=== PATIENT | female | born 1980 | race Two or more races ===

== ENCOUNTER 2024-06-23 09:34 | Outpatient (AMB) | payer OTHER, SELFPAY ==
--- NOTE | 2024-06-23 09:54 | A.OFFPC_ITS ---
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 Previously being seen by [facility] has been over a year. Presenting with anxiety management and IBS concerns. There is a history of anxiety with past panic attacks, previously managed with Zoloft which posed sexual dysfunction, prompting discontinuation. Current use of Sukumar tea for anxiety relief is noted; the patient seeks further assistance through medication or counseling. Reports IBS-like symptoms with alternating constipation and diarrhea; bloating is worsened by certain foods, like broccoli. She also mentions 2 cysts on the right wrist and a small mass on the left upper shoulder which has been present for several years. [facility] Medical History Ovarian cyst Asthma Surgical History History of left oophorectomy History of Family History Father Substance use disorder Mother Hypertension Dementia Hyperlipidemia Mental health disorder Social History Housing: House Alcohol intake: current Alcohol intake frequency: a few times a month Alcohol type: beer Patient Tobacco Use Status: Former Tobacco user Tobacco use type: Cigarette e-Cigarette/Vaping Use: Never Used Second Hand Smoke Exposure: No service: No Current occupational status: employed Current occupational exposures/hazards: No Cognitive needs: No Hearing needs: No Vision needs: Yes Questionnaire PHQ-9 Over the last 2 weeks, how often have you been bothered by any of the following problems? 1. Little interest or pleasure in doing things: not at all 2. Feeling down, depressed, or hopeless: several days 3. Trouble falling or staying asleep, or sleeping too much: not at all 4. Feeling tired or having little energy: several days 5. Poor appetite or overeating: not at all 6. Feeling bad about yourself - or that you are a failure or have let yourself or your family down: not at all 7. Trouble concentrating on things, such as reading the newspaper or watching television: not at all 8. Moving or speaking so slowly that other people could have noticed. Or the opposite - being so fidgety or restless that you have been moving around a lot more than usual: several days 9. Thoughts that you would be better off or of hurting yourself in some way: not at all Total score: 3 Depression Screening Interpretation: Positive Depression Screening Follow-up: Existing condition and New Medication prescribed Depression Screening Done: Yes Source: Developed by Drs. Hardy Cervantes, Haydee Tomlinson, Nicola Jacob and colleagues, with an educational minerva from [employer]. Thrive Questionnaire Date Thrive assessed: 06/23/24 I am a: Patient What is your living situation today?: I have a steady place to live Within the past 12 months, did the food you bought not last and you didn't have the money to get more?: Never true Within the past 12 months, did you worry whether your food would run out before you got money to buy more?: Never true Do you have trouble paying for medicines?: No Do you have trouble getting transportation to medical appointments?: No Do you have trouble paying your heating and electricity bill?: No Do you have trouble taking care of your child, family member or friend?: No Do you have trouble with day-to-day activities such as bathing, preparing meals, shopping, managing finances, etc.?: No Are you currently unemployed and looking for a job?: No Are you interested in more education?: No Please select the resources that you would like help with: None Currently or been in a relationship where the following occur: No concerns reported THRIVE Score: 0 AUDIT C Alcohol Use Questionnaire (AUDIT-C) 1. How often do you have a drink containing alcohol?: 2-3 times a week 2. How many drinks containing alcohol do you have on a typical day when you are drinking?: 1 or 2 3. How often do you have six or more drinks on one occasion?: Never Total Score: 3 CIARA-7 AMB Questionnaire CIARA-7 Date CIARA - 7 assessed: 06/23/24 Feeling nervous, anxious, or on edge: 1 = Several days Not being able to stop or control worryin = Several days Worrying too much about different things: 1 = Several days Trouble relaxin = More than half the days Being so restless that it is hard to sit still: 0 = Not at all Becoming easily annoyed or irritable: 2 = More than half the days Feeling afraid as if something awful might happen: 0 = Not at all Total CIARA-7 score (0-4 normal; 5-9 mild; 10-14 moderate; 15-21 severe): 7 Source: Developed by Drs. Hardy Cervantes, Haydee Tomlinson, Nicola Jacob and colleagues, with an educational minerva from [employer]. Review of Systems Const Denies body aches, Denies chills, Denies fever(s), Denies headache(s) and Denies poor appetite Eyes Reports no additional complaints ENT Denies dysphagia, Denies dizziness, Denies headache(s) and Denies odynophagia Card Denies chest pain, Denies syncope, Denies edema, Denies irregular heart rhythm, Denies lightheadedness and Denies dyspnea Resp Denies cough and Denies dyspnea GI Denies abdominal pain, Denies constipation, Denies dysphagia, Denies diarrhea, Denies nausea, Denies odynophagia and Denies vomiting Reports no additional complaints Musc Reports no additional complaints and Denies abnormal gait Skin/Breast Reports system reviewed and no additional complaints, except as documented Neuro Denies abnormal gait, Denies dizziness, Denies syncope and Denies headache(s) Psych Reports no additional complaints Physical exam (Primary Care) Depression Screening Interpretation: Positive Depression Screening Follow-up: Existing condition and New Medication prescribed Thrive Assessment: Date of Thrive Assessment Date Thrive assessed 06/21/24 06/21/24 12:17 Currently or been in a relationship where the following occur: No concerns reported Const General: cooperative, healthy appearing, comfortable and no acute distress Orientation/consciousness: patient oriented x3 HENMN Head: Yes normocephalic Ears: hearing grossly normal bilaterally General nose exam: Normal external nose present Eyes General: appearance normal, both eyes and all related structures Conjunctivae: conjunctivae normal Neck Neck: Yes full ROM and Yes no lymphadenopathy Resp Effort & Inspection: normal respiratory effort Auscultation: clear to auscultation bilaterally, no crackles, no rales, no rhonchi and no wheezes Cardio Rate: regular rate Rhythm: regular rhythm Skin General skin exam: no rashes or lesions noted Full body images: 2 1. Small, soft, nontender, freely mobile mass Neuro General: patient oriented x3 Gait exam (Neuro): Normal gait present Extrem General: Yes normal to inspection, Yes full ROM and No edema Elbow/forearm/wrist images: 2 1. Soft, nontender, fluctuance mass of the wrist 2. Soft, nontender, fluctuance mass of the wrist Psych Affect: normal affect Attitude: cooperative Insight: Good insight present (Psych) Judgement: Good judgement present (Psych) Coding Level of Care Code New Pt Level 4 (61460) Diagnoses Depression F32.A Generalized anxiety disorder F41.1 Screening for hypercholesterolemia Z13. Soft tissue mass M79.89 Obesity E66.9 Ganglion cyst M67.40 Constipation K59.00 Assessment & Plan Assessment & Plan (1) Depression: Code(s): F32.A - Depression, unspecified Category: Medical Plan: We will initiate Wellbutrin for anxiety and depression management, given its lesser likelihood of sexual side effects, with a follow-up to assess efficacy and tolerability. Counseling services will be evaluated for further psychological support. (2) Generalized anxiety disorder: Code(s): F41.1 - Generalized anxiety disorder Category: Medical Plan: We will initiate Wellbutrin for anxiety and depression management, given its lesser likelihood of sexual side effects, with a follow-up to assess efficacy and tolerability. Counseling services will be evaluated for further psychological support. (3) Screening for hypercholesterolemia: Code(s): Z13.220 - Encounter for screening for lipoid disorders Category: Medical Plan: Blood work ordered (4) Soft tissue mass: Comment: left shoulder Code(s): M79.89 - Other specified soft tissue disorders Category: Medical Plan: Patient having soft tissue mass on left upper shoulder she had been present for many years but more recently has become painful. Referral placed to General surgery for possible excision (5) Obesity: Code(s): E66.9 - Obesity, unspecified Category: Medical Plan: Healthy diet and regular exercise is encouraged. (6) Ganglion cyst: Code(s): M67.40 - Ganglion, unspecified site Category: Medical Plan: Presence of 2 ganglion cyst of the right wrist. If bothersome can consider referral to Orthopedics however patient declines at this time. (7) Constipation: Code(s): K59.00 - Constipation, unspecified Category: Medical Plan: The patient will adopt a low FODMAP diet with the addition of Metamucil to manage IBS symptoms. Gas-X can be used as needed. Fasting lab work, including cortisol, is ordered to further investigate bloating and weight concerns. Orders: Orders 2 Complete Blood Count Auto Diff Today Z00.00 - Encounter for general adult medical examination without abnormal findings TSH reflex Free T4 Today Z00.00 - Encounter for general adult medical examination without abnormal findings Vitamin B12 and Folate Today Z00.00 - Encounter for general adult medical examination without abnormal findings Vitamin D 25-OH Total Today Z00.00 - Encounter for general adult medical examination without abnormal findings Cortisol Random Today E66.9 - Obesity, unspecified Comprehensive Met. Panel Today Z00.00 - Encounter for general adult medical examination without abnormal findings Lipid Panel Today Z13.220 - Encounter for screening for lipoid disorders Referrals 2 General Surgery Referral M79.89 - Other specified soft tissue disorders Medications: New 2 bupropion HCl SR 150 mg PO DAILY 30 tabs 2RF
[2024-06-23 09:56] VITALS: BP 122/78; PULSE 76; O2SAT 98; BMI 28.3
--- OUTSIDE RECORDS SUMMARY | 2024-06-23 10:52 | XMS_ITS ---
Author Name [facility] Organization Unknown History of Medication Use Medication Directions Dispensed Refills Start Date End Date Stat us No medication inform ation recorded active Problems Problem Status Onset Date Problem Type Date of Resoluti on Source Tightness in chest [facility] Acute bronchitis, unspecified organism active [facility]
--- OUTSIDE RECORDS SUMMARY | 2024-06-23 10:52 | XMS_ITS | Clinical Summary ---
Author Organization [facility] Address [address] [place] [address] Care Team Providers Care Tilting Saw Operator Name Role Phone Nova Bae MD Primary Care Provider [phone] Allergies No known active allergies Medications Medication Sig Dispensed Refills Start Date End Date Status albuterol (PROVENTIL HFA; VENTOLIN HFA) 108 (90 Base) MCG/ACT inhalerIndications:Ac [place] bronchitis, unspecified organism Inhale 2 puffs every 4 (four) hours as needed for wheezing or shortness of breath. 1 each 12/11/2023 Active Active Problems No known active problems Social History Tobacco Use Types Packs/Day Years Used Date Smoking Tobacco: Never Assessed Sex and Gender Information Value Date Recorded Sex Assigned at Not on file Gender Identity Not on file Sexual Orientation Not on file Last Filed Vital Signs Vital Sign Reading Time Taken Comments Blood Pressure 141/81 12/11/2023 7:14 PM EDT Pulse 68 12/11/2023 7:13 PM EDT Temperature - - Respiratory Rate 18 12/11/2023 7:13 PM EDT Oxygen Saturation 98% 12/11/2023 7:13 PM EDT Inhaled Oxygen Concentration - - Weight - - Height - - Body Mass Index - - Plan of Treatment Health Maintenance Due Date Last Done Comments Hepatitis C Virus Screening 1980 HIV Screening 1993 DTaP/Tdap/Td Vaccines (1 - Tdap) 1999 Hepatitis B Vaccines (1 of 3 - 19+ 3-dose series) 1999 Pap Smear (Ages 21-65) 2001 Mammogram 2020 Influenza Vaccine 11/19/2023 COVID-19 Vaccine ( - 2023-2 5 season) 2023 01/17/2022, 06/09/2021 HPV Vaccines Aged Out No longer eligi ble based on patient's age to complete this topic Pneumococcal Vaccine: Pediatric (0-5 Years) and At-Risk Patients (6 to 49 Years) Aged Out No longer eligible b ased on patient's age to complete this topic Care Teams Tilting Saw Operator Relationship Specialty Start Date End Date Nova Bae MD [address] [place] [id number] PCP - General Family Medicine 12/11/23
--- OUTSIDE RECORDS SUMMARY | 2024-06-23 10:52 | XMS_ITS | Clinical Summary ---
Author Organization [facility] Address [address] [place] [address] Care Team Providers Care Assistant Buyer Name Role Phone Unavailable Primary Care Provider Unavailabl e Social History Tobacco Use Types Packs/Day Years Used Date Smoking Tobacco: Never Assessed Sex and Gender Information Value Date Recorded Sex Assigned at Not on file Gender Identity Not on file Sexual Orientation Not on file Job Start Date Occupation Industry Not on file Not on file Not on file Plan of Treatment Not on file
--- OUTSIDE RECORDS SUMMARY | 2024-06-23 10:52 | XMS_ITS | Clinical Summary ---
Author Organization [facility] it Address [address] [place] [address] Care Team Providers Care Table Assembler Metal Name Role Phone Nova Esteban MD Primary Care Provider [phone] Surgical History Surgery Date Site/Laterality Comments OVARIAN CYST REMOVAL 1990 PROCEDURE: AR OVARIAN CYSTECTOMY UNI/BI; COMMENT: left ovary removed due to torsion CERVICAL BIOPSY W/ LOOP ELECTRODE EXCISION 2002 PROCEDURE: AR CONIZATION CERVIX W/WO D&C RPR ELTRD EXC APPENDECTOMY 1990 PROCEDURE: HISTORICAL APPENDECTOMY SECTION 06/12/2019 PROCEDURE: HISTORICAL DELIVERY; COMMENT: [facility] Medical History Medical History Date Comments Other specified personal his tory presenting hazards to health(V15.89) DX:Other specifie d personal history presenting hazards to health(V15.89); COMMENT: 2002 Cin3 Palpitations DX:Palpitations Anxiety DX:Anxiety 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 this Hemorrhagic cyst of right ovary DX:Hemorrhagic cyst of right ovary; COMMENT: lost 2 liter blood - did not need transfusion HSV-2 infection DX:HSV-2 infecti on; COMMENT: perianal Family History Medical History Relation Name Comments Other: anxiety Brother 1 Other: hypotension Brother 1 Other: anxiety Brother 2 Other: hypoglycemic Brother 2 Schizophrenia Brother 3 half brother - share mom Other: balanced translocation of chromosome 3 & 5 Daughter 1 Alcohol abuse Father Alcohol abuse Maternal Grandfather Heart attack Maternal Grandfather Heart failure Maternal Grandmother Hypertension Maternal Grandmother Diabetes Mother Hypertension Mother Thyroid disease Mother Lung cancer Paternal Grandfather smoker Other: brain tumor Paternal Grandmother c ancerous (lasted 3 months) Alcohol abuse Sister half sister - sh are dad Breast cancer Neg Hx Colon cancer Neg Hx Ovarian cancer Neg Hx Pancreatic cancer Neg Hx Prostate cancer Neg Hx Uterine cancer Neg Hx Relation Name Status Comments Brother 1 Alive 3,healthy Brother 2 Alive Brother 3 half brother - share mom Alive Daughter 1 Alive Daughter 2 Alive Father Alive alcoholic Maternal Grandfather Maternal Grandmother Mother Alive Paternal Grandfather Paternal Grandmother Sister half sister - share dad Alive Son Alive Social History Tobacco Use Types Packs/Day Years Used Date Smoking Tobacco: Former Cigarettes Q uit: 03/12/2017 Smokeless Tobacco: Never Alcohol Use Standard Drinks/Week Comments No 0 (1 standard drink = 0.6 oz pur e alcohol) Comments Unknown Sex and Gender Information Value Date Recorded Sex Assigned at Not on file Legal Sex Female 6:47 PM EST Gender Identity Not on file Sexual Orientation Not on file Obstetrics History Last Filed Vital Signs Vital Sign Reading Time Taken Comments Blood Pressure 107/85 08/17/2023 2:33 PM EDT Pulse 93 08/17/2023 2:33 PM EDT Temperature - - Respiratory Rate - - Oxygen Saturation - - Inhaled Oxygen Concentration - - Weight 65.4 kg (144 lb 3.2 oz) 08/17/2023 2:33 P M EDT Height 149.9 cm (4' 11 ) 08/17/2023 2:33 PM EDT Body Mass Index 29.12 08/17/2023 2:33 PM EDT Plan of Treatment Health Maintenance Due Date Last Done Comments Hepatitis B Vaccines (1 of 3 - 19+ 3-dose series) 1999 Pneumococcal Vaccine: Pediatrics (0 to 5 Years) and At-Risk Patients (6 to 64 Years) (1 of 2 - PCV) 1999 Cholesterol Screening (Lipid Panel) 03/28/2022 Depression Screening 03/28/2022 HIV Screening 03/28/2022 Hepatitis C Screening 03/28/2022 Social Influencers of Health Screening 03/28/2022 COVID-19 Vaccine (4 - 2023-2 5 season) 2023 01/07/2022, 07/08/2021, 06/09/2021 Influenza Vaccine (#1) 2023 12/31/2018 Cervical Cancer Screening: P ap Smear 08/15/2024 08/15/2021 Breast Cancer Screening 09/06/2025 09/07/19 24, 09/07/2023 DTaP,Tdap,and Td Vaccines (3 - Td or Tdap) 12/13/2031 12/12/2021, 03/31/2019 HIB Vaccines Aged Out No longer eligi ble based on patient's age to complete this topic HPV Vaccines Aged Out No longer eligi ble based on patient's age to complete this topic Hepatitis A Vaccines Aged Out No long er eligible based on patient's age to complete this topic IPV Vaccines Aged Out No longer eligi ble based on patient's age to complete this topic MMR Vaccines Aged Out No longer eligi ble based on patient's age to complete this topic Meningococcal ACWY Vaccine Aged Out N o longer eligible based on patient's age to complete this topic Meningococcal B Vacine Aged Out No lo nger eligible based on patient's age to complete this topic RSV Immunization Patients Under 20 months Aged Out No longer eligible b ased on patient's age to complete this topic Varicella Vaccines Aged Out No longer eligible based on patient's age to complete this topic Procedures Procedure Name Priority Date/Time Associated Diagnosis Comments ELSY SCREENING DIGITAL Routine 09/07/2023 4:27 PM EDT Encounter for screening mammogram for malignant neoplasm of breast PAP SMEAR Routine 08/15/2021 from Last 3 Months or Most Recently Relevant to Health Maintenance Results * ELSY SCREENING DIGITAL (09/07/2023 4:27 PM EDT) Anatomical Region Laterality Modality Mammography 09/07/2023 3:11 PM EDT Narrative 09/07/2023 4:27 PM EDT [facility] Diagnostic Imaging Department [address] [place], [place] [id number] Patient: ??ARNULFO RENE ?/Age/Sex: 1980 - 43 - F Unit#: ??[id number] ? Location/Status: ??SPDIMAM/REG CLI ? Mnemonic/Ordering Site: ??DIGSC/SPMAM Ordering Physician: ??KASSANDRA ALSTON CNM Elsy Screening Digital - 09/07/23 - 1530 Report Status:Signed EXAM: Elsy Screening Digital EXAM DATE AND TIME: 09/07/2023 3:30 PM HISTORY: ??Screening. Baseline exam. COMPARISON: ??No comparison imaging. TECHNIQUE: Bilateral digital breast tomosynthesis was performed in the CC and MLO projections. Computer aided detection with [employer] 3D 3.1 was employed. TISSUE DENSITY: c. The breasts are heterogeneously dense, which may obscure small masses. FINDINGS: A 1.6 cm rounded focal asymmetry is seen in the posterior 9 to 10:00 position of the right breast, without associated microcalcifications. CC and MLO spot compression tomosynthesis views and full lateral tomosynthesis views are recommended for further assessment. No grouped microcalcifications or areas of architectural distortion are seen. The skin and vascularity are unremarkable. IMPRESSION: 1. Right breast focal asymmetry for which additional views are recommended. The patient will be called back. 2. No mammographic evidence of malignancy is seen in the left breast. BI-RADS: ??Category 0: Incomplete - Need Additional Imaging Evaluation RECOMMENDATION(S): 1: Special mammographic view(s) needed RIGHT Dictating Physician: ??KARI BLANKENSHIP MD Electronically Signed by: ??KARI BLANKENSHIP MD Dic Date/Time: ??09/07/23 1626 Sign date/Time: ??09/07/23 1627 Procedure Note Kari Blankenship MD - 12/07/2023 [facility] Diagnostic Imaging Department [address] [place] [address] Patient: ARNULFO RENE/Age/Sex: 1980 - 43 - F Unit#: [id number] Location/Status: SPDIMAM/REG CLI Mnemonic/Ordering Site: [facility] Ordering Physician: KASSANDRA ALSTON CNM Elsy Screening Digital - 09/07/23 - 1530 Report Status:Signed EXAM: [facility] Screening Digital EXAM DATE AND TIME: 09/07/2023 3:30 PM HISTORY: Screening. Baseline exam. COMPARISON: No comparison imaging. TECHNIQUE: Bilateral digital breast tomosynthesis was performed in the CCand MLO projections. Computer aided detection with [employer] 3D 3.1was employed. TISSUE DENSITY: c. The breasts are heterogeneously dense, which mayobscure small masses. FINDINGS: A 1.6 cm rounded focal asymmetry is seen in the posterior 9 to 10:00position of the right breast, without associated microcalcifications. CC and MLOspot compression tomosynthesis views and full lateral tomosynthesis views are recommended for further assessment. No grouped microcalcifications or areas of architectural distortion areseen. The skin and vascularity are unremarkable. IMPRESSION: 1. Right breast focal asymmetry for which additional views arerecommended. The patient will be called back. 2. No mammographic evidence of malignancy is seen in the left breast. BI-RADS: Category 0: Incomplete - Need Additional Imaging Evaluation RECOMMENDATION(S): 1: Special mammographic view(s) needed RIGHT Dictating Physician: KARI BLANKENSHIP MD Electronically Signed by: KARI BLANKENSHIP MD Dic Date/Time: 09/07/23 1626 Sign date/Time: 09/07/23 1627 Kassandra Alston CNM IMG BI PROCEDURES Final Resul t * Pap smear (08/15/2021) 08/15/2021 Narrative HISTORICAL TESTING LAB RESULTING AGENCY - 09/03/2021 7:25 AM EDT [id number] THINPREP PAP, IMAGED: NEGATIVE FOR SQUAMOUS INTRAEPITHELIAL LESION AND MALIGNANCY. NOTE: THE PAP TEST IS A SCREENING TEST WITH AN INHERENT FALSE NEGATIVE RATE. AUTOMATED PRESCREENING OF ALL LIQUID BASED SPECIMENS IS PERFORMED BY THE THINPREP IMAGING SYSTEM UNLESS OTHERWISE STATED. CHANTE YOON(ASCP) (CASE ELECTRONICALLY SIGNED 09 02 2021) RESULT OF APTIMA HIGH RISK HPV ASSAY: HIGH RISK HPV: ??NEGATIVE (SEROTYPES 16,18,31,33,35,39,45,51,52,56,58,59,66,68) COMPLETED ON 2021-08-16 ADEQUACY: SATISFACTORY ENDOCERVICAL/TRANSFORMATION ZONE COMPONENT PRESENT. SOURCE: THINPREP PAP HPV ANY DX: ??REFLEX 16 AND 18, CERVICAL, IMAGED CLINICAL INFORMATION: HPV ANY DIAGNOSIS. , PAP HX NEGATIVE, LMP 05/14/21, [Z12.4] Kassandra Alston CNM LAB CYTOLOGY ORDERABLES Final Result HISTORICAL TESTING LAB RESULTING AGENCY from Last 3 Months or Most Recently Relevant to Health Maintenance Care Teams Table Assembler Metal Relationship Specialty Start Date End Date Nova Esteban MD [address] [place] [id number] PCP - General 05/12/22
== END 2024-06-23 10:38 | disposition home or self-care (01) ==
DX: F32.A Depression, unspecified (principal); F41.1 Generalized anxiety disorder; Z68.28 Body mass index [BMI] 28.0-28.9, adult; E66.9 Obesity, unspecified; Z13.220 Encounter for screening for lipoid disorders; M79.89 Other specified soft tissue disorders; M67.40 Ganglion, unspecified site; K59.00 Constipation, unspecified

== ENCOUNTER 2024-06-27 13:20 | Outpatient (AMB) | payer OTHER, SELFPAY ==
[2024-06-27 13:21] VITALS: BMI 28.3
--- NOTE | 2024-06-27 13:21 | A.OFFVIS_ITS ---
Vital Signs 06/27/24 13:21 Height 4 ft 11 in Weight 140 lb 0.002 oz BMI 28.3 Intake Visit Reasons: cyst on back Intake Note: This patient presents for cyst of back. Pt c/o; reports back cyst and ganglion cyst on wrist, reports discomfort. Chemistry Research Assistant Required: No Accompanied by: Family/Other Allergies No Known Allergies Allergy (Verified 06/27/24 13:26) Medication List - Last Reconciled 06/27/24 by Pradip Ontiveros MD bupropion HCl SR 150 mg PO DAILY HPI HPI cyst on back: Details: 44-year-old female here for a cyst on her back. She says that she has had this since she was very young. She says that this has been causing her some discomfort and occasional pain now and wants this removed. She denies any drainage She also points as small ganglion cyst on the right wrist but she says that this has bothering her at this time. [facility] Medical History Ovarian cyst Asthma Surgical History History of left oophorectomy History of Family History Father Substance use disorder Mother Hypertension Dementia Hyperlipidemia Mental health disorder Social History Housing: House Alcohol intake: current Alcohol intake frequency: a few times a month Alcohol type: beer Patient Tobacco Use Status: Former Tobacco user Tobacco use type: Cigarette e-Cigarette/Vaping Use: Never Used Second Hand Smoke Exposure: No service: No Current occupational status: employed Current occupational exposures/hazards: No Cognitive needs: No Hearing needs: No Vision needs: Yes Review of Systems Const Denies chills and Denies fever(s) Card Denies chest pain, Denies dyspnea and Denies dyspnea on exertion Resp Denies cough, Denies dyspnea and Denies dyspnea on exertion GI Denies hematochezia and Denies change in bowel habits Denies hematuria Musc Denies back pain and Denies limited range of motion Neuro Denies focal weakness and Denies convulsions Psych Denies depression and Denies mood swings Physical Exam Vital Signs: BMI result Body Mass Index 28.3 Const General: comfortable and no acute distress Orientation/consciousness: patient oriented x3 Neck Neck: Yes no lymphadenopathy Resp Auscultation: clear to auscultation bilaterally Cardio Rhythm: regular rhythm GI Palpation (GI): Soft to palpation, nontender and no guarding Back/Spine/Pelvis Other: Cystic mass in the upper back, seems to be deep but well-defined, about 1 cm in diameter Neuro General: patient oriented x3 Extrem Other: Gangrenous cyst on the right wrist volar aspect, about 5 cm Assessment & Plan Assessment & Plan (1) Soft tissue mass: Comment: left shoulder Code(s): M79.89 - Other specified soft tissue disorders Category: Medical Plan: She has this mass on the back that seems to be a ganglion cyst and feels deep in the soft tissue. This is well-defined however. She wants to proceed with excision. I explained the technique of excision under local anesthesia in the office. I reviewed the risks including but not limited to bleeding, infections, postop pain, poor healing, as well as the benefits and alternatives. She understands and wants to proceed. This will be done in the office on her next visit. (2) Ganglion cyst: Code(s): M67.40 - Ganglion, unspecified site Category: Medical Plan: This is small and asymptomatic at this time. She wants to hold off on excision for now. Coding Level of Care Code New Pt Level 3 (94794) Diagnoses Soft tissue mass M79.89 Ganglion cyst M67.40
--- OUTSIDE RECORDS SUMMARY | 2024-06-27 15:05 | XMS_ITS | Clinical Summary ---
Author Organization [facility] it Address [address] [place] [address] Care Team Providers Care Stucco Mason Name Role Phone Nova Esteban MD Primary Care Provider [phone] Surgical History Surgery Date Site/Laterality Comments OVARIAN CYST REMOVAL 1990 PROCEDURE: [place] OVARIAN CYSTECTOMY UNI/BI; COMMENT: left ovary removed due to torsion CERVICAL BIOPSY W/ LOOP ELECTRODE EXCISION 2002 PROCEDURE: [place] CONIZATION CERVIX W/WO D&C RPR ELTRD EXC APPENDECTOMY 1990 PROCEDURE: HISTORICAL APPENDECTOMY SECTION 06/12/2019 PROCEDURE: HISTORICAL DELIVERY; COMMENT: [facility] Medical History Medical History Date Comments [...] PM EDT Narrative 09/07/2023 4:27 PM EDT [facility] Diagnostic Imaging Department [address] [place], [place] [id number] Patient: ??ARNULFO RENE ?/Age/Sex: 1980 - 43 - F Unit#: ??[id number] ? Location/Status: ??SPDIMAM/REG CLI ? Mnemonic/Ordering Site: ??DIGSC/SPMAM Ordering Physician: ??KASSANDRA ALSTON CNM Elsy Screening Digital - 09/07/23 - 1530 Report Status:Signed EXAM: Elsy Screening Digital EXAM DATE AND TIME: 09/07/2023 3:30 PM HISTORY: ??Screening. Baseline exam. COMPARISON: ??No comparison imaging. TECHNIQUE: Bilateral digital breast tomosynthesis was performed in the CC and MLO projections. Computer aided detection with Robert Applebaum MD 3D 3.1 was employed. TISSUE DENSITY: c. [...] Procedure Note Kari Blankenship MD - 12/07/2023 [facility] Diagnostic Imaging Department [address] [place] [id number] Patient: ARNULFO RENE/Age/Sex: 1980 - 43 - F Unit#: [id number] Location/Status: SPDIMAM/REG CLI Mnemonic/Ordering Site: [facility] Ordering Physician: KASSANDRA ALSTON CNM Elsy Screening Digital - 09/07/23 - 1530 Report Status:Signed EXAM: [facility] Screening Digital EXAM DATE AND TIME: 09/07/2023 3:30 PM HISTORY: Screening. Baseline exam. COMPARISON: No comparison imaging. TECHNIQUE: Bilateral digital breast tomosynthesis was performed in the CCand MLO projections. Computer aided detection with Robert Applebaum MD 3D 3.1was employed. TISSUE DENSITY: c. The [...] by: KARI BLANKENSHIP MD Dic Date/Time: 09/07/23 162 Sign date/Time: 09/07/23 162 Kassandra Alston CNM IMG BI PROCEDURES Final Resul t * Pap smear (08/15/2021) 08/15/2021 Narrative HISTORICAL TESTING LAB RESULTING AGENCY - 09/03/2021 7:25 AM EDT [id number] THINPREP PAP, IMAGED: NEGATIVE FOR SQUAMOUS INTRAEPITHELIAL [...] Recently Relevant to Health Maintenance Care Teams Stucco Mason Relationship Specialty Start Date End Date Nova Esteban MD PCP - General 05/12/22
--- OUTSIDE RECORDS SUMMARY | 2024-06-27 15:05 | XMS_ITS | Clinical Summary ---
Author Organization [facility] Address [address] [place] [address] Care Team Providers Care Cotton Acreage Measurer Name Role Phone Unavailable Primary Care Provider [...]
--- OUTSIDE RECORDS SUMMARY | 2024-06-27 15:05 | XMS_ITS | Clinical Summary ---
Author Organization [facility] Address [address] [place] [address] Care Team Providers Care Independent Living Specialist Name Role Phone Nova Bae MD Primary Care Provider [phone] Allergies No known active allergies Medications Medication Sig Dispensed Refills Start Date End Date Status albuterol (PROVENTIL HFA; VENTOLIN HFA) 108 (90 Base) MCG/ACT inhalerIndications:Ac suki bronchitis, unspecified organism Inhale 2 puffs every [...] age to complete this topic Care Teams Independent Living Specialist Relationship Specialty Start Date End Date Nova Bae MD [address] [place] [id number] PCP - General Family Medicine 12/11/23
== END 2024-06-27 13:49 | disposition home or self-care (01) ==
PROVIDERS: Visit Provider Surgery
DX: M79.89 Other specified soft tissue disorders (principal); M67.40 Ganglion, unspecified site
CPT/HCPCS: 99203

== ENCOUNTER 2024-06-28 10:16 | Outpatient (REF) | payer OTHER, SELFPAY ==
[2024-06-28 10:47] LABS: MANUAL DIFF FLAG NO
[2024-06-28 12:04] LABS: Basophils Percent Auto 0.5 % (0-2); Eosinophils Percent Auto 0.7 % (0-4); Hematocrit 42.9 % (37.0-47.0); Imm Gran Abs Auto 0.01 X10*3/uL (0.00-0.03); Imm Gran Pct Auto 0.2 % (0.0-0.4); Lymphocytes Absolute Auto 1.3 X10*3/uL (1.2-4.9); Lymphocytes Percent Auto 31.8 % (20-40); Mean Corpuscular Hemoglobin 31.4 pg (27.0-33.0); Mean Corpuscular Volume 89.7 fL (80.0-98.0); Mean Platelet Volume 10.3 fL (9.4-12.3); Monocytes Absolute Auto 0.3 X10*3/uL (0.1-1.2); Monocytes Percent Auto 7.1 % (2-11); Neutrophils Absolute Auto 2.5 x10*3/uL (2.0-8.3); Neutrophils Percent Auto 59.7 % (45-73); Platelet Count 279 X10*3/uL (160-400); Red Blood Count 4.78 X10*6/uL (4.20-5.50); Red Cell Distribution Width 11.9 % (11.0-16.0); White Blood Count 4.2 X10*3/uL (4.8-10.8)
--- OUTSIDE RECORDS SUMMARY | 2024-06-28 12:11 | XMS_ITS | Clinical Summary ---
Author Organization [facility] Address [address] [place] [address] Care Team Providers Care Detail Technician Name Role Phone Unavailable Primary Care Provider [...]
--- OUTSIDE RECORDS SUMMARY | 2024-06-28 12:11 | XMS_ITS | Clinical Summary ---
Author Organization [facility] it Address [address] [place] [address] Care Team Providers Care Subway Car Repairer Name Role Phone Nova Esteban MD Primary Care Provider [phone] Surgical History Surgery Date Site/Laterality Comments OVARIAN CYST REMOVAL 1990 PROCEDURE: [place] OVARIAN CYSTECTOMY UNI/BI; COMMENT: left ovary removed due to torsion CERVICAL BIOPSY W/ LOOP ELECTRODE EXCISION 2002 PROCEDURE: [place] CONIZATION CERVIX W/WO D&C RPR ELTRD EXC APPENDECTOMY 1990 PROCEDURE: HISTORICAL APPENDECTOMY SECTION 06/12/2019 PROCEDURE: HISTORICAL DELIVERY; COMMENT: [facility] Medical History Medical History Date Comments [...] PM EDT Narrative 09/07/2023 4:27 PM EDT [facility] Diagnostic Imaging Department [address] [place], [place] [id number] Patient: ??ARNULFO RENE ?/Age/Sex: 1980 - 43 - F Unit#: ??[id number] ? Location/Status: ??SPDIMAM/REG CLI ? Mnemonic/Ordering Site: ??DIGSC/SPMAM Ordering Physician: ??KASSANDRA ALSTON CNM Elsy Screening Digital - 09/07/23 - 1530 Report Status:Signed EXAM: Elsy Screening Digital EXAM DATE AND TIME: 09/07/2023 3:30 PM HISTORY: ??Screening. Baseline exam. COMPARISON: ??No comparison imaging. TECHNIQUE: Bilateral digital breast tomosynthesis was performed in the CC and MLO projections. Computer aided detection with [employer] 3D 3.1 was employed. TISSUE DENSITY: c. [...] Procedure Note Kari Blankenship MD - 12/07/2023 [facility] Diagnostic Imaging Department [address] [place] [address] Patient: ARNULFO RENE/Age/Sex: 1980 - 43 - F Unit#: [id number] Location/Status: SPDIMAM/REG CLI Mnemonic/Ordering Site: [facility] Ordering Physician: KASSANDRA ALSTON CNM Elsy Screening Digital - 09/07/23 - 1530 Report Status:Signed EXAM: [facility] Screening Digital EXAM DATE AND TIME: 09/07/2023 3:30 PM HISTORY: Screening. Baseline exam. COMPARISON: No comparison imaging. TECHNIQUE: Bilateral digital breast tomosynthesis was performed in the CCand MLO projections. Computer aided detection with [employer] 3D 3.1was employed. TISSUE DENSITY: c. The [...] RESULTING AGENCY - 09/03/2021 7:25 AM EDT [id number] THINPREP PAP, IMAGED: NEGATIVE FOR SQUAMOUS INTRAEPITHELIAL [...] Recently Relevant to Health Maintenance Care Teams Subway Car Repairer Relationship Specialty Start Date End Date Nova Esteban MD PCP - General 05/12/22
--- OUTSIDE RECORDS SUMMARY | 2024-06-28 12:11 | XMS_ITS | Clinical Summary ---
Author Organization [facility] Address [address] [place] [address] Care Team Providers Care Project Manager/Design Manager Name Role Phone Nova Bae MD Primary Care Provider [phone] Allergies No known active allergies Medications Medication [...] age to complete this topic Care Teams Project Manager/Design Manager Relationship Specialty Start Date End Date Nova Bae MD [address] [place] [id number] PCP - General Family Medicine 12/11/23
[2024-06-28 13:06] LABS: Alanine Aminotransferase 15 U/L (0-31); Albumin Level 4.3 g/dL (3.5-5.0); Alkaline Phosphatase 48 U/L (39-117); Anion Gap 10 (12-20); Aspartate Amino Transferase 17 U/L (5-31); Blood Urea Nitrogen 13 mg/dL (9-16); Calcium 8.8 mg/dL (8.4-10.2); Carbon Dioxide 25 mmol/L (22-29); Chloride 110 mmol/L (96-108); Cholesterol 149 mg/dL (<200); Cortisol Random 6.6 ug/dL; Estimated Glomerular Filt Rate > 60; Glucose Random 78 mg/dL (60-115); HDL Cholesterol 49 mg/dL (>40); LDL Cholesterol Calculated 92 mg/dL (<100); Sodium 141 mmol/L (135-145); Total Protein 7.3 g/dL (6.5-8.0); Triglycerides 41 mg/dL (<150)
[2024-06-28 13:08] LABS: TSH reflex Free T4 0.49 uIU/mL (0.32-4.0)
[2024-06-28 13:15] LABS: Folate 10.3 ng/mL (> or = 4.0); Vitamin B12 538 pg/mL (200-900)
== END 2024-06-28 10:17 | disposition home or self-care (01) ==
LOC: HO.LAB 10:16
DX: Z00.00 Encounter for general adult medical examination without abnormal findings (principal); E66.9 Obesity, unspecified; Z13.220 Encounter for screening for lipoid disorders; F41.1 Generalized anxiety disorder; M79.89 Other specified soft tissue disorders
CPT/HCPCS: 36415; 80053; 80061; 82306; 82533; 82607; 82746; 84443; 85025

== ENCOUNTER 2024-07-08 15:37 | Outpatient (AMB) | payer OTHER, SELFPAY ==
--- NOTE | 2024-07-08 15:37 | A.OFFPC_ITS ---
Intake Visit Reasons: discuss medications Automation Manager Required: No Software Sales Consultant: Not Required per policy Accompanied by: Self / Same As Patient Allergies No Known Allergies Allergy (Verified 07/08/24 15:55) Medication List - Last Reconciled 07/08/24 by Jigna Lay PA-C bupropion HCl SR 150 mg PO DAILY Tobacco use date assessed: 06/23/24 Dental Screening Dental Screen Date: 06/23/24 HPI discuss medications HPI Details 44-year-old female with past medical his tory of anxiety, depression and obesity last seen 06/2024 coming in for follow up on anxiety. Patient tells us today when she was taking the Wellbutrin she began having palpitations and increasing anxiety. She did not find it helpful for her anxiety and depression and found that it actually was worsening her anxiety. She has tried Zoloft in the past and has a side effect of weight gain, BuSpar in the past and that is a side effect of dizziness. She is interested in trying another medication for anxiety at this time. [facility] Medical History Ovarian cyst Asthma Surgical History History of left oophorectomy History of Family History Father Substance use disorder Mother Hypertension Dementia Hyperlipidemia Mental health disorder Social History Housing: House Alcohol intake: current Alcohol intake frequency: a few times a month Alcohol type: beer Patient Tobacco Use Status: Former Tobacco user Tobacco use type: Cigarette e-Cigarette/Vaping Use: Never Used Second Hand Smoke Exposure: Yes service: No Current occupational status: employed Current occupational exposures/hazards: No Cognitive needs: No Hearing needs: No Vision needs: Yes Questionnaire Thrive Questionnaire Date Thrive assessed: 06/21/24 I am a: Patient What is your living situation today?: I have a steady place to live Within the past 12 months, did the food you bought not last and you didn't have the money to get more?: Never true Within the past 12 months, did you worry whether your food would run out before you got money to buy more?: Never true Do you have trouble paying for medicines?: No Do you have trouble getting transportation to medical appointments?: No Do you have trouble paying your heating and electricity bill?: No Do you have trouble taking care of your child, family member or friend?: No Do you have trouble with day-to-day activities such as bathing, preparing meals, shopping, managing finances, etc.?: No Are you currently unemployed and looking for a job?: No Are you interested in more education?: No Please select the resources that you would like help with: None Currently or been in a relationship where the following occur: No concerns reported THRIVE Score: 0 CIARA-7 AMB Questionnaire CIARA-7 Date CIARA - 7 assessed: 06/23/24 Source: Developed by Drs. Hardy Cervantes, Haydee Tomlinson, Nicola Jacob and colleagues, with an educational minerva from [employer]. Review of Systems Const Denies body aches, Denies chills, Denies fever(s), Denies headache(s) and Denies poor appetite Eyes Reports no additional complaints ENT Denies dizziness and Denies headache(s) Card Denies chest pain, Denies lightheadedness and Denies dyspnea Resp Denies dyspnea Musc Reports no additional complaints and Denies abnormal gait Skin/Breast Reports system reviewed and no additional complaints, except as documented Neuro Denies abnormal gait, Denies dizziness and Denies headache(s) Psych Reports no additional complaints Physical exam (Primary Care) Vital Signs: Physical exam and vital signs not performed due to nature of telehealth visit Tobacco/Smoking Status: Tobacco use Status Tobacco use date assessed 06/23/24 07/08/24 15:39 Patient Tobacco Use Status Former Tobacco user 07/08/24 15:39 Tobacco use type Cigarette 07/08/24 15:39 e-Cigarette/Vaping Use Never Used 07/08/24 15:39 Thrive Assessment: Date of Thrive Assessment Date Thrive assessed 06/21/24 07/08/24 15:39 Currently or been in a relationship where the following occur: No concerns reported Telehealth Telehealth Telehealth Platform: Telephone Location of provider rendering services: practice address Location of patient: address on file Patient Identification confirmed using: Name, : Yes Telehealth method: voice only Patient verbally consented to treatment: Yes Patient verbally consented to billing insurance company: Yes Patient informed of any privacy concerns related to visit: Yes Coding Level of Care Code Tele Est Pt Level 3 (29035) Diagnoses Depression F32.A Generalized anxiety disorder F41.1 Assessment & Plan Assessment & Plan (1) Depression: Code(s): F32.A - Depression, unspecified Category: Medical Plan: Patient having side effects to Wellbutrin. She is wary of trying another medication from SSRI class however given her history would recommend a daily medication. Plan to start on escitalopram daily and follow up at next visit to determine efficacy. (2) Generalized anxiety disorder: Code(s): F41.1 - Generalized anxiety disorder Category: Medical Plan: Patient having side effects to Wellbutrin. She is wary of trying another medication from SSRI class however given her history would recommend a daily medication. Plan to start on escitalopram daily and follow up at next visit to determine efficacy. Counseled patient on side effects of this medication and agrees to reach out if she has other questions or concerns. Plan This note was constructed using voice recognition software. While every effort has been made to ensure accuracy and dietary aide, still areas may have been included sometimes these areas may affect the content or meeting of the given symptoms. Total time spent caring for the patient today was 20 minutes. This includes time spent before the visit reviewing the chart, time spent during the visit, and time spent after the visit and documentation. Medications: New escitalopram oxalate 5 mg PO DAILY 60 tabs 1RF Discontinued bupropion HCl SR Discontinued Reason: Patient no longer taking 150 mg PO DAILY 30 tabs 2RF
== END 2024-07-08 16:09 | disposition home or self-care (01) ==
LOC: HO.HMCH 15:37
DX: F32.A Depression, unspecified (principal); F41.1 Generalized anxiety disorder

== ENCOUNTER 2024-07-11 11:21 | Outpatient (AMB) | payer OTHER, SELFPAY ==
--- NOTE | 2024-07-11 11:22 | A.OFFVIS_ITS ---
Vital Signs 07/11/24 11:26 Height 4 ft 11 in Weight 138 lb 14.259 oz BMI 28.0 BP 120/72 Blood Pressure Location Lt brachial Position Sitting Intake Visit Reasons: cyst on back Intake Note: Patient is seen for office procedure, excision of back cyst. Pt c/o: no changes, here for removal of cyst s/p:07/25/24 @11:30am Medical Administrative Technician Required: No Accompanied by: Family/Other Allergies No Known Allergies Allergy (Verified 07/11/24 11:22) HPI HPI cyst on back: Details: She is here for excision of a mass from the back. [facility] Medical History (Updated 07/11/24 @ 11:54 by Pradip Ontiveros MD) Mass of subcutaneous tissue of back Ovarian cyst Asthma Surgical History History of left oophorectomy History of Family History Father Substance use disorder Mother Hypertension Dementia Hyperlipidemia Mental health disorder Social History Housing: House Alcohol intake: current Alcohol intake frequency: a few times a month Alcohol type: beer Patient Tobacco Use Status: Former Tobacco user Tobacco use type: Cigarette e-Cigarette/Vaping Use: Never Used Second Hand Smoke Exposure: Yes service: No Current occupational status: employed Current occupational exposures/hazards: No Cognitive needs: No Hearing needs: No Vision needs: Yes Physical Exam Vital Signs: Last Vital Signs BP 120/72 07/11/24 11:26 BMI result Body Mass Index 28.0 Office Procedures Excision Details: She was in prone position. The area of the mass on the upper back a little to the left of the midline was prepped and draped. Lidocaine 1% was used for local anesthesia. I made a transverse incision on the skin overlying this mass with a blade 15. This was carried down through the full-thickness of the skin and subcutaneous fat. We continued to dissect sharply until was able to visualize a lipomatous mass. This lipomatous mass was sharply dissect with with Metzenbaum scissors until this was delivered. This was about 1.2 cm in diameter I closed the incision with full-thickness nylon 3-0 simple interrupted sutures. Dressings were applied. The procedure was completed. She tolerated the procedure well. There were no immediate complications. There was minimal blood loss. [id number]/arms/legs 1.1-2cm Procedure code (CPT) selection complete Assessment & Plan Assessment & Plan (1) Mass of subcutaneous tissue of back: Code(s): R22.2 - Localized swelling, mass and lump, trunk Category: Medical Plan: Excision was done under local anesthesia. This appeared to be a lipoma. She was given wound care instructions. I will see her in the office in about 2 weeks for removal sutures. Coding Level of Care Code Procedure Only Diagnoses Mass of subcutaneous tissue of back R22.2 CPT Codes Trunk/Arms/Legs - CPT: 89855-uzrpc/arms/legs 1.1-2cm ([id number])
[2024-07-11 11:26] VITALS: BP 120/72; BMI 28.0
== END 2024-07-11 12:15 | disposition home or self-care (01) ==
LOC: HO.HGS 11:22
PROVIDERS: Visit Provider Surgery
DX: D17.1 Benign lipomatous neoplasm of skin and subcutaneous tissue of trunk (principal)
CPT/HCPCS: 11402

== ENCOUNTER 2024-07-11 11:21 | Outpatient (REF) | payer OTHER, SELFPAY | END 2024-07-11 11:22 | disposition home or self-care (01) | LOC: HO.LAB 11:21 | PROVIDERS: Visit Provider Surgery | DX: M79.89 Other specified soft tissue disorders (principal); M67.40 Ganglion, unspecified site; R22.2 Localized swelling, mass and lump, trunk | CPT/HCPCS: 11402; 88304 ==

== ENCOUNTER 2024-08-24 11:07 | Outpatient (AMB) | payer OTHER, SELFPAY ==
--- NOTE | 2024-08-24 11:14 | A.OFFPC_ITS ---
Vital Signs 08/24/24 11:15 Height 4 ft 11 in Weight 140 lb BMI 28.3 BP 110/60 Blood Pressure Location Lt brachial Position Sitting Pulse 79 Pulse Source Pulse Oximeter Temp 97.3 F Temp Source Temporal Artery Scan Pulse Oximetry (%) 98 Oxygen Delivery Method Room Air Intake Visit Reasons: Annual Exam Intake Note: Patient is here today for a physical. Assessment Nurse Practitioner Required: No Field Associate: Present Accompanied by: Spouse Allergies No Known Allergies Allergy (Verified 08/24/24 11:22) Medication List - Last Reconciled 08/24/24 by Jigna Lay PA-C escitalopram oxalate 5 mg PO DAILY Tobacco use date assessed: 08/24/24 Dental Screening Dental Screen Date: 06/23/24 HPI Annual Exam HPI Details 44-year-old female with past medical his tory of anxiety, depression and obesity last seen 06/2024 coming in for annual exam.? In review of the notes, patient was seen by General surgery 06/2024 for lipoma removal. Presenting with medication management for depression and anxiety. She reports taking Lexapro with adverse effects similar to those experienced with past sertraline treatments. She has previously tried Wellbutrin, finding it too stimulating at a 150 mg daily dose, resulting in jitteriness. She has discontinued Lexapro to avoid side effects, desiring to revert to Wellbutrin, which aided mood, energy, and lacked sexual side effects. The patient has a chronic history of low white blood cell count spanning three years. The lowest measurement was in the twos, but recent counts are stable, and the patient awaits a hematology referral for further evaluation due to persistent low counts. The patient had a recent cyst excision with subsequent swelling and itching, possibly due to tissue recovery. mammogram: due 11/2024 order placed pap smear: does follow with fur farmer through [place] and has appt upcoming Vaccines: UTD colonoscopy: Cologuard box order placed [facility] Medical History Mass of subcutaneous tissue of back Ovarian cyst Asthma Surgical History History of cystostomy History of left oophorectomy History of Family History Father Substance use disorder Mother Hypertension Dementia Hyperlipidemia Mental health disorder Social History Housing: House Alcohol intake: current Alcohol intake frequency: a few times a month Alcohol type: beer Patient Tobacco Use Status: Former Tobacco user Tobacco use type: Cigarette e-Cigarette/Vaping Use: Never Used Second Hand Smoke Exposure: Yes service: No Current occupational status: employed Current occupation: RN Current occupational exposures/hazards: No Cognitive needs: No Hearing needs: No Vision needs: Yes Female Reproductive History Menstrual History of abnormal pap smear: Yes (more recent paps have been normal ) Questionnaire Thrive Questionnaire Date Thrive assessed: 06/21/24 I am a: Patient What is your living situation today?: I have a steady place to live Within the past 12 months, did the food you bought not last and you didn't have the money to get more?: Never true Within the past 12 months, did you worry whether your food would run out before you got money to buy more?: Never true Do you have trouble paying for medicines?: No Do you have trouble getting transportation to medical appointments?: No Do you have trouble paying your heating and electricity bill?: No Do you have trouble taking care of your child, family member or friend?: No Do you have trouble with day-to-day activities such as bathing, preparing meals, shopping, managing finances, etc.?: No Are you currently unemployed and looking for a job?: No Are you interested in more education?: No Please select the resources that you would like help with: None Currently or been in a relationship where the following occur: No concerns reported THRIVE Score: 0 CIARA-7 AMB Questionnaire CIARA-7 Date CIARA - 7 assessed: 06/23/24 Source: Developed by Drs. Hardy Cervantes, Haydee Tomlinson, Nicola Jacob and colleagues, with an educational minerva from [employer]. Review of Systems Const Denies body aches, Denies fever(s), Denies frequent falls, Denies headache(s) and Denies weakness Eyes Reports no additional complaints, Denies change in vision and Reports requires corrective lenses ENT Denies dysphagia, Denies dizziness, Denies facial pain, Denies headache(s), Denies nasal congestion and Denies odynophagia Card Denies chest pain, Denies syncope, Denies irregular heart rhythm, Denies leg edema, Denies lightheadedness and Denies dyspnea Resp Denies cough and Denies dyspnea GI Denies abdominal pain, Denies constipation, Denies dysphagia, Denies dyspepsia, Denies diarrhea, Denies nausea, Denies odynophagia and Denies vomiting Denies urinary frequency, Denies dysuria, Denies urinary hesitancy and Denies urinary urgency Musc Denies back pain and Denies myalgias Skin/Breast Reports system reviewed and no additional complaints, except as documented Neuro Denies dizziness, Denies syncope, Denies frequent falls, Denies headache(s) and Denies weakness Psych Reports no additional complaints Physical exam (Primary Care) Vital Signs: Last Vital Signs Temp 97.3 F 08/24/24 11:15 Pulse 79 08/24/24 11:15 BP 110/60 08/24/24 11:15 Pulse Ox 98 08/24/24 11:15 Oxygen Delivery Method Room Air 08/24/24 11:15 BMI result Body Mass Index 28.3 Tobacco/Smoking Status: Tobacco use Status Tobacco use date assessed 08/24/24 08/24/24 11:20 Patient Tobacco Use Status Former Tobacco user 08/24/24 11:20 Tobacco use type Cigarette 08/24/24 11:20 e-Cigarette/Vaping Use Never Used 08/24/24 11:20 Thrive Assessment: Date of Thrive Assessment Date Thrive assessed 06/21/24 08/24/24 11:20 Currently or been in a relationship where the following occur: No concerns reported Const General: cooperative, healthy appearing, comfortable and no acute distress Orientation/consciousness: patient oriented x3 [facility] Head: Yes normocephalic Ears: hearing grossly normal bilaterally, external ears normal, TM's normal bilaterally and EAC's normal General nose exam: Normal external nose present Face and sinus: Yes normal facial exam and Yes sinuses nontender Mouth: Normal oral and palatal mucosa present and tongue normal Throat: Yes posterior oropharynx normal Eyes General: appearance normal, both eyes and all related structures Conjunctivae: conjunctivae normal Pupils: Equal, round and reactive pupils present EOM: EOMs intact bilaterally and No Nystagmus present Neck Neck: Yes normal visual inspection, Yes full ROM and Yes no lymphadenopathy Chest Chest palpation & inspection: normal inspection of the chest Resp Effort & Inspection: normal respiratory effort Auscultation: clear to auscultation bilaterally, no crackles, no rales, no rhonchi, no wheezes and breath sounds present Cardio Rate: regular rate Rhythm: regular rhythm Peripheral pulses: radial pulses present and dorsalis pedis present GI Inspection: Yes normal to inspection and No Abdominal wall edema Palpation (GI): Soft to palpation, not firm and nontender Auscultation: normal bowel sounds Rectal Exam - Female: deferred General: Yes no CVA tenderness Back/Spine/Pelvis Back: no CVA tenderness Skin General skin exam: no rashes or lesions noted Neuro General: patient oriented x3 Cranial nerves: Yes Equal, round and reactive pupils present, Yes Midline tongue present, Yes Ability to bilaterally elevate shoulders present and No Nystagmus present Gait exam (Neuro): Normal gait present Extrem General: Yes normal to inspection, Yes full ROM, No no pedal edema and No edema Psych Speech and movement: Normal speech and movement present Affect: normal affect Insight: Good insight present (Psych) Judgement: Good judgement present (Psych) Coding Level of Care Code Est Pt Prev Care 40-64y(61816) Diagnoses Mass of subcutaneous tissue of back R22.2 Ganglion cyst M67.40 Depression F32.A Generalized anxiety disorder F41.1 Obesity E66.9 Annual physical exam Z00.00 Constipation K59.00 Assessment & Plan Assessment & Plan (1) Mass of subcutaneous tissue of back: Code(s): R22.2 - Localized swelling, mass and lump, trunk Category: Medical Plan: Mass was removed by General surgery postop when well patient doing well at this time. (2) Ganglion cyst: Code(s): M67.40 - Ganglion, unspecified site Category: Medical Plan: Presence of 2 ganglion cyst of the right wrist. If bothersome can consider referral to Orthopedics however patient declines at this time. (3) Depression: Code(s): F32.A - Depression, unspecified Category: Medical Plan: Patient has been on Lexapro and finds she is having side effects of this medication. She did find the Wellbutrin was causing jitteriness but she would like to initiate at a lower dose. Plan to restart on Wellbutrin 100 mg advised patient to start with once daily dosing and taper to twice daily dosing as swathi ated. Plan to follow up in 2 months or sooner if new problems arise. (4) Generalized anxiety disorder: Code(s): F41.1 - Generalized anxiety disorder Category: Medical Plan: See above (5) Obesity: Code(s): E66.9 - Obesity, unspecified Category: Medical Plan: Healthy diet and regular exercise is encouraged. (6) Annual physical exam: Code(s): Z00.00 - Encounter for general adult medical examination without abnormal findings Category: Medical Plan: Patient is due for mammogram screening in November and referral was placed today. She follows with gynecology yearly and is up-to-date on her Pap smears. She will also be due for colorectal cancer screening this year and [facility]. She is up-to-date on all vaccinations for her age. Blood work is up-to-date and has been reviewed with the patient today. Plan to follow up in 2 months to review medication management or sooner if new problems arise. (7) Constipation: Code(s): K59.00 - Constipation, unspecified Category: Medical Plan: The patient will adopt a low FODMAP diet with the addition of Metamucil to manage IBS symptoms. Gas-X can be used as needed. Fasting lab work, including cortisol, is ordered to further investigate bloating and weight concerns. Plan This note was constructed using voice recognition software. While every effort has been made to ensure accuracy and wood heel attacher, still areas may have been included sometimes these areas may affect the content or meeting of the given symptoms. Total time spent caring for the patient today was 30 minutes. This includes time spent before the visit reviewing the chart, time spent during the visit, and time spent after the visit and documentation. Patient was informed and verbally consented to the use of an ambient scribe for clinic note documentation during this visit. Orders: Orders MM tomosynthesis screening BI Today Z12.31 - Encounter for screening mammogram for malignant neoplasm of breast Referrals Cologuard Test Z12.11 - Encounter for screening for malignant neoplasm of colon Hematology & Oncology Referral D72.819 - Decreased white blood cell count, unspecified Medications: New cholecalciferol (vitamin D3) 25 mcg PO DAILY 90 caps 3RF bupropion HCl 100 mg PO BID 60 tabs 1RF hydroxyzine HCl 25 mg PO BID PRN 14 tabs 0RF anxiety Discontinued escitalopram oxalate Discontinued Reason: Patient no longer taking 5 mg PO DAILY 60 tabs 1RF
[2024-08-24 11:15] VITALS: BP 110/60; PULSE 79; TEMP 36.3; O2SAT 98; BMI 28.3
--- OUTSIDE RECORDS SUMMARY | 2024-08-24 12:35 | XMS_ITS | Clinical Summary ---
Author Organization [facility] Address [address] [place] [address] Care Team Providers Care Linux Devops Engineer Name Role Phone Nova Bae MD Primary Care Provider Allergies No known active allergies Medications albuterol (PROVENTIL HFA; VENTOLIN HFA) 108 (90 Base) MCG/ACT inhalerIndicatio ns:Acute bronchitis, unspecified organism Inhale 2 puffs every 4 (four) hours as needed for wheezing or shortness of breath. 1 each Active Active Problems No known active problems Social History Tobacco Use Types Packs/Day Years Used Date Smoking Tobacco: Never Assessed Comments Unknown Sex and Gender Information Value Date Recorded Sex Assigned at Not on file Legal Sex Female 3:51 PM EDT Gender Identity Not on file Sexual Orientation [...] Pap Smear (Ages 21-65) 2001 Mammogram 2020 COVID-19 Vaccine (3 - 2023-2 5 season) 2023 01/17/2022, 06/09/2021 Influenza Vaccine 11/18/2024 HPV Vaccines Aged Out No longer eligi ble based on patient's age to complete this topic Pneumococcal Vaccine: Pediatric (0-5 Years) and At-Risk Patients (6 to 49 Years) Aged Out No longer eligible b ased on patient's age to complete this topic Insurance Care Teams Linux Devops Engineer Relationship Specialty Start Date End Date Nova Bae MD [address] [place] [id number] PCP - General Family Medicine 12/11/23
--- OUTSIDE RECORDS SUMMARY | 2024-08-24 12:35 | XMS_ITS | Clinical Summary ---
Author Organization [facility] it Address [address] [place] [address] Care Team Providers Care Assault Amphibious Vehicle Officer Name Role Phone Nova Esteban MD Primary Care Provider [phone] Surgical History Surgery Date Site/Laterality Comments OVARIAN CYST REMOVAL 1990 PROCEDURE: NC OVARIAN CYSTECTOMY UNI/BI; COMMENT: left ovary removed due to torsion CERVICAL BIOPSY W/ LOOP ELECTRODE EXCISION 2002 PROCEDURE: NC CONIZATION CERVIX W/WO D&C RPR ELTRD EXC APPENDECTOMY 1990 PROCEDURE: HISTORICAL APPENDECTOMY SECTION 06/12/2019 PROCEDURE: HISTORICAL DELIVERY; COMMENT: [facility] Medical History Medical History Date Comments Other [...] Years) (1 of 2 - PCV) 1999 Depression Screening 03/28/2022 HIV Screening 03/28/2022 Hepatitis C Screening 03/28/2022 Social Influencers of Health Screening 03/28/2022 COVID-19 Vaccine (2023-2 5 season) 2023 01/07/2022, 07/08/2021, 06/09/2021 Cervical Cancer Screening: P ap Smear 08/15/2024 08/15/2021 Influenza Vaccine (Season Ended) 2024 12/31/2018 Breast Cancer Screening 09/06/2025 09/07/19 24, 09/07/2023 [...] age to complete this topic Meningococcal B Vaccine Aged Out No l onger eligible based on patient's age to complete this topic RSV Immunization Patients Under 20 months Aged Out No longer eligible b ased on patient's age to complete this topic Varicella Vaccines Aged Out No longer eligible based on patient's age to complete this topic Procedures Procedure Name Priority Date/Time Associated Diagnosis Comments [facility] SCREENING DIGITAL Routine 09/07/2023 4:27 PM EDT Encounter for screening mammogram for malignant neoplasm of breast PAP SMEAR Routine 08/15/2021 from Last 3 Months or Most Recently Relevant to Health Maintenance Results * ELSY SCREENING DIGITAL (09/07/2023 4:27 PM EDT) Anatomical Region Laterality Modality Mammography 09/07/2023 3:11 PM EDT Narrative 09/07/2023 4:27 PM EDT [facility] Diagnostic Imaging Department [address] [place] [address] [id number] Patient: ??ARNULFO RENE ?/Age/Sex: 1980 - 43 - F Unit#: ??[id number] ? Location/Status: ??SPDIMAM/REG CLI ? Mnemonic/Ordering Site: ??DIGSC/SPMAM Ordering Physician: ??KASSANDRA KAILEYYonis Elsy Screening Digital - 09/07/23 - 1530 Report Status:Signed EXAM: Elsy Screening Digital EXAM DATE AND TIME: 09/07/2023 3:30 PM HISTORY: ??Screening. Baseline exam. COMPARISON: ??No comparison imaging. TECHNIQUE: Bilateral digital breast tomosynthesis was performed in the CC and MLO projections. Computer aided detection with Zoomdata 3D 3.1 was employed. TISSUE DENSITY: c. [...] Dic Date/Time: ??09/07/23 1626 Sign date/Time: ??09/07/23 162 Procedure Note Kari Blankenship MD - 12/07/2023 [facility] Diagnostic Imaging Department [address] [place] [address] [place] [address] Patient: BRITTNEYEMILYARNULFO D.O.B./Age/Sex: 1980 - 43 - F Unit#: [id number] Location/Status: SPDIMAM/REG CLI Mnemonic/Ordering Site: DIGSC/[facility] Ordering Physician: KASSANDRA ALSTON CNM [facility] Screening Digital - 09/07/23 - 1530 Report Status:Signed EXAM: [facility] Screening Digital EXAM DATE AND TIME: 09/07/2023 3:30 PM HISTORY: Screening. Baseline exam. COMPARISON: No comparison imaging. TECHNIQUE: Bilateral digital breast tomosynthesis was performed in the CCand MLO projections. Computer aided detection with inexioD Genomind 3D 3.1was employed. TISSUE DENSITY: c. The [...] Signed by: KARI BLANKENSHIP MD Dic Date/Time: 09/07/231625 Sign date/Time: 09/07/231626 Kassandra Alston CNM IMG BI PROCEDURES Final Resul t * Pap smear (08/15/2021) 08/15/2021 Narrative HISTORICAL TESTING LAB RESULTING AGENCY - 09/03/2021 7:25 AM EDT [id number] THINPREP PAP, IMAGED: NEGATIVE FOR SQUAMOUS INTRAEPITHELIAL [...] Recently Relevant to Health Maintenance Care Teams Assault Amphibious Vehicle Officer Relationship Specialty Start Date End Date Nova Esteban MD PCP - General 05/12/22
--- OUTSIDE RECORDS SUMMARY | 2024-08-24 12:35 | XMS_ITS | Clinical Summary ---
[facility] Address [address] [place] [address] Care Team Providers Care Pre Press Proofer Name Role Phone Unavailable Primary Care Provider [...]
== END 2024-08-24 12:00 | disposition home or self-care (01) ==
LOC: HO.HMCH 11:08
DX: Z00.00 Encounter for general adult medical examination without abnormal findings (principal); E66.9 Obesity, unspecified; R22.2 Localized swelling, mass and lump, trunk; Z68.28 Body mass index [BMI] 28.0-28.9, adult; M67.40 Ganglion, unspecified site; F32.A Depression, unspecified; F41.1 Generalized anxiety disorder; K59.00 Constipation, unspecified

== ENCOUNTER → 2024-08-24 11:07 | Outpatient (BNVA) | payer OTHER, SELFPAY | DX: Z13.89 Encounter for screening for other disorder (principal) ==

== ENCOUNTER → 2024-09-29 09:50 | Outpatient (BNV) | payer OTHER, SELFPAY | PROVIDERS: Visit Provider Internal Medicine | DX: D72.819 Decreased white blood cell count, unspecified (principal) | CPT/HCPCS: 99203 ==

== ENCOUNTER → 2024-11-11 12:00 | Outpatient (BNV) | payer OTHER, SELFPAY | PROVIDERS: Visit Provider Internal Medicine | DX: Z12.31 Encounter for screening mammogram for malignant neoplasm of breast (principal) | CPT/HCPCS: 77063; 77067 ==

== ENCOUNTER 2024-11-11 12:07 | Outpatient (REF) | payer OTHER, SELFPAY ==
--- OUTSIDE RECORDS SUMMARY | 2024-11-11 12:10 | XMS_ITS ---
Author Name [facility] Organization Unknown History of Medication Use Medication Directions Dispensed Refills Start Date End Date Stat us No medication inform ation recorded active Problems Problem Status Onset Date Problem Type Date of Resoluti on Source Tightness in chest active EncounterDiagnosisAct HHCCT Acute bronchitis, unspecified organism active EncounterDiagnosisAct CCT Encounters Encounter Type Encounter Reason Primary Diagnosis Location Date Ambulatory Cough, unspecified Cough, unspecified [facility] 12/11/2023 Ambulatory [facility] 04/12/2023 Care Team Organization Name Specialty Phone Email Start Date End [facility] 08/31/2024 [facility] Primary Care 12/12/2023 07/06/2024 [facility] 12/12/2023 [employer] [facility] Primary Care 12/12/2023 [facility] Not Found Primary Care 05/10/2023 [facility] 04/12/2023 10/05/2024 [facility] 04/12/2023 04/12/2023 [facility] 2023 08/26/2024 [facility] Y[facility] Camarena Primary Care 02/25/2022 12/07/2023 [facility] 07/28/2012 07/28/2012
--- OUTSIDE RECORDS SUMMARY | 2024-11-11 12:10 | XMS_ITS | Clinical Summary ---
[facility] Address [address] [place] [address] Care Team Providers Care Doctor Assistant Name Role Phone Unavailable Primary Care Provider [...]
--- OUTSIDE RECORDS SUMMARY | 2024-11-11 12:10 | XMS_ITS | Clinical Summary ---
Author Organization [facility] Address [address] [place] [address] Care Team Providers Care Teaseler Name Role Phone Nova Bae MD Primary Care Provider [phone] Allergies No known active allergies Medications albuterol [...] to complete this topic Insurance Care Teams Teaseler Relationship Specialty Start Date End Date Nova Bae MD [address] [place] [id number] PCP - General Family Medicine 12/11/23
== END 2024-11-11 12:08 | disposition home or self-care (01) ==
LOC: HO.MAMMO 12:07
DX: Z12.31 Encounter for screening mammogram for malignant neoplasm of breast (principal)
CPT/HCPCS: 77063; 77067

== ENCOUNTER 2024-11-17 08:33 | Outpatient (AMB) | payer OTHER, SELFPAY ==
--- NOTE | 2024-11-17 08:33 | A.OFFPC_ITS ---
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 Legal Coordinator: Not Required per policy Accompanied by: Self / Same As Patient Allergies No Known Allergies Allergy (Verified 11/17/24 08:40) Medication List - Last Reconciled 11/17/24 by Jigna Lay PA-C bupropion HCl 100 mg PO BID cholecalciferol (vitamin D3) 25 mcg PO DAILY hydroxyzine HCl 25 mg PO BID PRN Tobacco use date assessed: 08/24/24 Dental Screening Dental Screen Date: 06/23/24 HPI f/u depression via tele HPI Details 44-year-old female with past medical his tory of anxiety, depression and obesity last seen 08/2024 presenting via telehealth for follow up on medication.?At her last visit she was restarted on Wellbutrin 100 mg.?In review of the notes, patient was seen by Hematology 09/2024 for leukopenia workup was negative advised to follow up as needed. Presenting with anxiety management and concerns about low blood count. The fernando flowerlindsey experiences anxiety due to the demands of managing two children with autism and working multiple jobs. She discontinued Wellbutrin due to jitteriness and prefers using teas and hydroxyzine as needed. Hydroxyzine is not taken regularly due to a busy schedule and concerns about drowsiness. The patient has a history of low blood count, confirmed by a research nurse who reviewed records back to 1989. [facility] Medical History Mass of subcutaneous tissue of back Ovarian cyst Asthma Surgical History History of cystostomy History of left oophorectomy History of Family History Father Substance use disorder Mother Hypertension Dementia Hyperlipidemia Mental health disorder Social History Housing: House Alcohol intake: current Alcohol intake frequency: a few times a month Alcohol type: beer Patient Tobacco Use Status: Former Tobacco user Tobacco use type: Cigarette e-Cigarette/Vaping Use: Never Used Second Hand Smoke Exposure: Yes service: No Current occupational status: employed Current occupation: RN Current occupational exposures/hazards: No Cognitive needs: No Hearing needs: No Vision needs: Yes Questionnaire Thrive Questionnaire Date Thrive assessed: 06/21/24 CIARA-7 AMB Questionnaire CIARA-7 Date CIARA - 7 assessed: 06/23/24 Source: Developed by Drs. Hardy Cervantes, Haydee Tomlinson, Nicola Jacob and colleagues, with an educational minerva from [employer]. Review of Systems Const Denies body aches, Denies chills, Denies fatigue and Denies fever(s) Eyes Reports no additional complaints ENT Reports no additional complaints Card Denies chest pain, Denies syncope, Denies irregular heart rhythm, Denies lightheadedness and Denies dyspnea Resp Denies dyspnea GI Denies abdominal pain, Denies constipation, Denies diarrhea, Denies nausea and Denies vomiting Neuro Denies syncope Endo Denies fatigue Physical exam (Primary Care) Vital Signs: Vital signs and physical exam not performed due to nature of telehealth visit Tobacco/Smoking Status: Tobacco use Status Tobacco use date assessed 08/24/24 11/17/24 08:35 Patient Tobacco Use Status Former Tobacco user 11/17/24 08:35 Tobacco use type Cigarette 11/17/24 08:35 e-Cigarette/Vaping Use Never Used 11/17/24 08:35 Thrive Assessment: Date of Thrive Assessment Date Thrive assessed 06/21/24 11/17/24 08:35 Telehealth Telehealth Telehealth Platform: [facility] Location of provider rendering services: practice address Location of patient: address on file Patient Identification confirmed using: Name, : Yes Telehealth method: video Patient verbally consented to treatment: Yes Patient verbally consented to billing insurance company: Yes Patient informed of any privacy concerns related to visit: Yes Coding Level of Care Code Tele Est Pt Level 3 (20590) Diagnoses Generalized anxiety disorder F41.1 Depression, unspecified depression type F32.A Depression Type: unspecified Class 3 severe obesity due to excess calories without serious comorbidity with body mass index (BMI) of 40.0 to 44.9 in adult E66.813; Z68.41 Obesity type: due to excess calories Obesity classification: adult class 3 (BMI >= 40) Serious obesity comorbidity presence: without serious comorbidity Body mass index: BMI 40.0-44.9 Leukopenia, unspecified type D72.819 Leukopenia type: unspecified Assessment & Plan Assessment & Plan (1) Generalized anxiety disorder: Code(s): F41.1 - Generalized anxiety disorder Category: Medical Plan: The management plan for anxiety involves discontinuing Wellbutrin due to adverse effects and using hydroxyzine as needed, with awareness of potential drowsiness. A referral to counseling services has been initiated to provide additional support and coping strategies, with telehealth options available for convenience. (2) Depression: Code(s): F32.A - Depression, unspecified Category: Medical Qualifiers: Depression Type: unspecified Qualified Code(s): F32.A - Depression, unspecified Plan: see above (3) Obesity: Code(s): E66.9 - Obesity, unspecified Category: Medical Qualifiers: Obesity type: due to excess calories Obesity classification: adult class 3 (BMI >= 40) Serious obesity comorbidity presence: without serious comorbidity Body mass index: BMI 40.0-44.9 Qualified Code(s): E66.813 - Obesity, class 3; Z68.41 - Body mass index [BMI] 40.0-44.9, adult Plan: Healthy diet and regular exercise is encouraged. (4) Leukopenia: Code(s): D72.819 - Decreased white blood cell count, unspecified Category: Medical Qualifiers: Leukopenia type: unspecified Qualified Code(s): D72.819 - Decreased white blood cell count, unspecified Plan: Seen by hematololgy determined to be benign and follow up as needed at this time. Plan to continue to monitor at this time. Plan This note was constructed using voice recognition software. While every effort has been made to ensure accuracy and efficiency miner blasting, still areas may have been included sometimes these areas may affect the content or meeting of the given symptoms. Total time spent caring for the patient today was 20 minutes. This includes time spent before the visit reviewing the chart, time spent during the visit, and time spent after the visit and documentation. Patient was informed and verbally consented to the use of an ambient scribe for clinic note documentation during this visit. Orders: Referrals Counseling Referral F32.A - Depression, unspecified, F41.1 - Generalized anxiety disorder Medications: Discontinued bupropion HCl Discontinued Reason: Patient no longer taking 100 mg PO BID 60 tabs 1RF
--- OUTSIDE RECORDS SUMMARY | 2024-11-17 08:43 | XMS_ITS | Clinical Summary ---
Author Organization [facility] Address [address] [place] [address] Care Team Providers Care Awning Hanger Supervisor Name Role Phone Nova Bae MD Primary Care Provider [phone] Allergies No known active allergies Medications albuterol [...] patient's age to complete this topic Insurance Member Subscriber Plan / Payer (Ef fective 2023-Present) Name:Judidanelle Sissy Relation to Subscriber:Self Name:Sissy Preciado Payer ID:[id number] (NAIC) Type:Not on file Address: [address] [address] Care Teams Awning Hanger Supervisor Relationship Specialty Start Date End Date Nova Bae MD [address] [place] [id number] PCP - General Family Medicine 12/11/23
--- OUTSIDE RECORDS SUMMARY | 2024-11-17 08:43 | XMS_ITS | Clinical Summary ---
[facility] Organization [facility] Address [address] [place] [address] Care Team Providers Care Public Relations Representative Name Role Phone Unavailable Primary Care Provider [...]
--- OUTSIDE RECORDS SUMMARY | 2024-11-17 08:43 | XMS_ITS | Clinical Summary ---
Author Organization [facility] Address [address] [place] [address] Care Team Providers Care Roof Tiler Name Role Phone Nova Esteban MD Primary Care Provider [phone] Surgical History Surgery Date Site/Laterality Comments OVARIAN CYST REMOVAL 1990 PROCEDURE: [place] OVARIAN CYSTECTOMY UNI/BI; COMMENT: left ovary removed due to torsion CERVICAL BIOPSY W/ LOOP ELECTRODE EXCISION 2002 PROCEDURE: [place] CONIZATION CERVIX W/WO D&C RPR ELTRD EXC APPENDECTOMY 1990 PROCEDURE: HISTORICAL APPENDECTOMY SECTION 06/12/2019 PROCEDURE: HISTORICAL DELIVERY; COMMENT: [facility] Medical History Medical History Date [...] 5 Years) and At-Risk Patients (6 to 49 Years) (1 of 2 - PCV) 1999 HIV Screening 03/28/2022 Hepatitis C Screening 03/28/2022 Social Influencers of Health Screening 03/28/2022 COVID-19 Vaccine (2023-2 5 season) 2023 01/07/2022, 07/08/2021, 06/09/2021 Depression Screening 04/20/2024 Cervical Cancer Screening: P ap Smear 08/15/2024 08/15/2021 Influenza Vaccine (#1) 2024 12/31/2018 Breast Cancer Screening 09/06/2025 09/07/19 [...] Procedure Name Priority Date/Time Associated Diagnosis Comments [facility] SCREENING DIGITAL Routine 09/07/2023 4:27 PM EDT Encounter for screening mammogram for malignant neoplasm of breast PAP SMEAR Routine 08/15/2021 from Last 3 Months or Most Recently Relevant to Health Maintenance Results * ELSY SCREENING DIGITAL (09/07/2023 4:27 PM EDT) Anatomical Region Laterality Modality Mammography 09/07/2023 3:11 PM EDT Narrative 09/07/2023 4:27 PM EDT [facility] Diagnostic Imaging Department [address] [place] [address] [id number] Patient: ARNULFO RENE D.O.B./Age/Sex: 1980 - 43 - F Unit#: [id number] Location/Status: SPDIMAM/REG CLI Mnemonic/Ordering Site: [facility] Ordering Physician: KASSANDRA ALSTON CNM Elsy Screening Digital - 09/07/23 - 1530 Report Status:Signed EXAM: Elsy Screening Digital EXAM DATE AND TIME: 09/07/2023 3:30 PM HISTORY: Screening. Baseline exam. COMPARISON: No comparison imaging. TECHNIQUE: Bilateral digital breast tomosynthesis was performed in the CC and MLO projections. Computer aided detection with [employer] 3D 3.1 was employed. TISSUE DENSITY: c. [...] Date/Time: 09/07/23 162 Sign date/Time: 09/07/23 162 Procedure Note Kari Blankenship MD - 12/07/2023 [facility] Diagnostic Imaging Department [address] [place] [address] Patient: ARNULFO RENE /Age/Sex: 1980 - 43 - F Unit#: [id number] Location/Status: SPDIMAM/REG CLI Mnemonic/Ordering Site: [facility] Ordering Physician: KASSANDRA ALSTON CNM Elsy Screening Digital - 09/07/23 - 1530 Report Status:Signed EXAM: [facility] Screening Digital EXAM DATE AND TIME: 09/07/2023 3:30 PM HISTORY: Screening. Baseline exam. COMPARISON: No comparison imaging. TECHNIQUE: Bilateral digital breast tomosynthesis was performed in the CCand MLO projections. Computer aided detection with [employer] 3D 3.1was employed. TISSUE DENSITY: c. The [...] RESULTING AGENCY - 09/03/2021 7:25 AM EDT [id number] THINPREP PAP, IMAGED: NEGATIVE FOR SQUAMOUS INTRAEPITHELIAL LESION AND MALIGNANCY. NOTE: THE PAP TEST IS A SCREENING TEST WITH AN INHERENT FALSE NEGATIVE RATE. AUTOMATED PRESCREENING OF ALL LIQUID BASED SPECIMENS IS PERFORMED BY THE THINPREP IMAGING SYSTEM UNLESS OTHERWISE STATED. CHANTE YOON(ASCP) (CASE ELECTRONICALLY SIGNED 09 02 2021) RESULT OF APTIMA HIGH RISK HPV ASSAY: HIGH RISK HPV: NEGATIVE (SEROTYPES 16,18,31,33,35,39,45,51,52,56,58,59,66,68) COMPLETED ON 2021-08-16 ADEQUACY: SATISFACTORY ENDOCERVICAL/TRANSFORMATION ZONE COMPONENT PRESENT. SOURCE: THINPREP PAP HPV ANY DX: REFLEX 16 AND 18, CERVICAL, IMAGED CLINICAL INFORMATION: HPV ANY DIAGNOSIS. , PAP HX NEGATIVE, LMP 05/14/21, [Z12.4] Kassandra Alston CNM LAB CYTOLOGY ORDERABLES Final Result HISTORICAL TESTING LAB RESULTING AGENCY from Last 3 Months or Most Recently Relevant to Health Maintenance Care Teams Roof Tiler Relationship Specialty Start Date End Date Nova Esteban MD PCP - General 05/12/22
== END 2024-11-17 09:01 | disposition home or self-care (01) ==
LOC: HO.HMCH 08:33
DX: F41.1 Generalized anxiety disorder (principal); F32.A Depression, unspecified; E66.813 Obesity, class 3; Z68.41 Body mass index [BMI] 40.0-44.9, adult; D72.819 Decreased white blood cell count, unspecified